=== PATIENT | male | born 1970 | race Caucasian/White ===

== ENCOUNTER 2021-08-06 22:02 | Emergency (ER) | payer MEDICAID ==
[~2021-08-06] VITALS: Ht 177.8 cm; Wt 118.4 kg
[2021-08-06 22:16] VITALS: BP 158/68
--- NOTE | 2021-08-06 22:16 | NUR ---
ER MD ASSESSING PT IN TRIAGE
[2021-08-06 22:23] VITALS: BP 158/68
--- NOTE | 2021-08-06 22:24 | NUR ---
Patient discharged with v/s stable. Written and verbal after care instructions given and explained. Patient verbalized understanding. Ambulatory with steady gait. All questions addressed prior to discharge. Advised to follow up with PMD. VSS, UNLABORED BREATHING. DC BY DR COOPER.
--- NOTE | 2021-08-06 22:24 | NUR ---
NO NURSING INTERVENTIONS NEEDED
== END 2021-08-06 22:20 | disposition home or self-care (01) ==
LOC: MED 22:02
DX: B34.9 Viral infection, unspecified (principal); E11.9 Type 2 diabetes mellitus without complications; I10 Essential (primary) hypertension
CPT/HCPCS: 99282